=== PATIENT | male | born 1960 | race Asian ===

== ENCOUNTER 2019-07-10 11:35 | Emergency (ER) | payer OTHER ==
[~2019-07-10] VITALS: Ht 170.2 cm; Wt 68.5 kg
[2019-07-10 12:05] VITALS: Ht 170.2 cm; Wt 68.5 kg
[2019-07-10 13:38] LABS: CALCIUM 8.9 mg/dL (8.5-10.1); CARBON DIOXIDE 25.1 mmol/L (21-32); CHLORIDE SERUM 105 mmol/L (98-107); GFR1 > 60 mL/min; GLUCOSE SERUM 104 mg/dL (74-106); POTASSIUM SERUM 4.4 mmol/L (3.5-5.1); SODIUM SERUM 139 mmol/L (136-145)
[2019-07-10 13:42] LABS: ALBUMIN 3.9 g/dL (3.4-5.0); ALKALINE PHOSPHATASE 78 U/L (46-116); ALT/SGPT 28 U/L (16-63); AST/SGOT 23 U/L (15-37); BILIRUBIN TOTAL 0.4 mg/dL (0.20-1.00); TOTAL PROTEIN, SERUM 7.8 g/dL (6.4-8.2)
[2019-07-10 13:43] LABS: BASOPHIL % 0.4 % (0-2); PLATELET COUNT 235 x10^3mcL (130-400); RED CELL DISTRIBUTION WIDTH 13.5 % (11.5-14.5)
[2019-07-10 16:40] VITALS: BP 104/64
[2019-07-10 17:09] LABS: microscopic required? NO
[2019-07-10 17:20] LABS: urine erythrocyte NEGATIVE (NEGATIVE)
== END 2019-07-10 16:40 | disposition home or self-care (01) ==
LOC: ED 11:35
PROVIDERS: Specialist
CPT/HCPCS: 36415; 87804; J1885